=== PATIENT | male | born 1945 | race Hispanic/Latino ===

== ENCOUNTER → 2019-10-10 | Outpatient (CLI) | payer OTHER ==
[2019-10-10 13:25] VITALS: BP 157/86
== END | disposition home or self-care (01) ==
LOC: WHH 09:55
PROVIDERS: ATTEND Family Medicine
DX: L89.513 Pressure ulcer of right ankle, stage 3 (principal); G82.20 Paraplegia, unspecified; L40.50 Arthropathic psoriasis, unspecified; M06.9 Rheumatoid arthritis, unspecified; F43.10 Post-traumatic stress disorder, unspecified; Z93.3 Colostomy status
CPT/HCPCS: 11042; A4450; A6021; G0463; 99205

== ENCOUNTER → 2019-10-17 | Outpatient (CLI) | payer OTHER ==
[2019-10-17 13:19] VITALS: BP 173/76
== END | disposition home or self-care (01) ==
LOC: WHH 08:00
PROVIDERS: ATTEND Family Medicine
DX: L89.513 Pressure ulcer of right ankle, stage 3 (principal); G82.20 Paraplegia, unspecified; L40.50 Arthropathic psoriasis, unspecified; M06.9 Rheumatoid arthritis, unspecified; F43.10 Post-traumatic stress disorder, unspecified; Z93.3 Colostomy status
CPT/HCPCS: 11042; A6021

== ENCOUNTER → 2019-10-24 | Outpatient (CLI) | payer OTHER ==
[2019-10-24 10:15] VITALS: BP 141/70
== END | disposition home or self-care (01) ==
LOC: WHH 08:00
PROVIDERS: ATTEND Family Medicine
DX: L89.513 Pressure ulcer of right ankle, stage 3 (principal); G82.20 Paraplegia, unspecified; M06.9 Rheumatoid arthritis, unspecified; L40.50 Arthropathic psoriasis, unspecified; F43.10 Post-traumatic stress disorder, unspecified; Z93.3 Colostomy status
CPT/HCPCS: 11042; A6021

== ENCOUNTER → 2019-11-07 | Outpatient (CLI) | payer OTHER ==
[2019-11-07 11:08] VITALS: BP 138/73
== END | disposition home or self-care (01) ==
LOC: WHH 08:00
PROVIDERS: ATTEND Family Medicine
DX: L89.513 Pressure ulcer of right ankle, stage 3 (principal); G82.20 Paraplegia, unspecified; M06.9 Rheumatoid arthritis, unspecified; L40.50 Arthropathic psoriasis, unspecified; F43.10 Post-traumatic stress disorder, unspecified; Z93.3 Colostomy status
CPT/HCPCS: 11042; A6021; A6209; 97597

== ENCOUNTER → 2019-11-14 | Outpatient (CLI) | payer OTHER ==
[2019-11-14 12:30] VITALS: BP 137/86
== END | disposition home or self-care (01) ==
LOC: WHH 08:00
PROVIDERS: ATTEND Family Medicine
DX: L89.513 Pressure ulcer of right ankle, stage 3 (principal); I73.9 Peripheral vascular disease, unspecified; L40.50 Arthropathic psoriasis, unspecified; G82.20 Paraplegia, unspecified; M06.9 Rheumatoid arthritis, unspecified; F43.10 Post-traumatic stress disorder, unspecified; Z93.3 Colostomy status
CPT/HCPCS: 11042; A6021; A6209

== ENCOUNTER → 2019-11-21 | Outpatient (CLI) | payer OTHER ==
[2019-11-21 14:31] VITALS: BP 159/87
== END | disposition home or self-care (01) ==
LOC: WHH 08:30
PROVIDERS: ATTEND Family Medicine
DX: I70.233 Atherosclerosis of native arteries of right leg with ulceration of ankle (principal); L89.513 Pressure ulcer of right ankle, stage 3; L97.312 Non-pressure chronic ulcer of right ankle with fat layer exposed; G82.20 Paraplegia, unspecified; M06.9 Rheumatoid arthritis, unspecified; L40.50 Arthropathic psoriasis, unspecified; F43.10 Post-traumatic stress disorder, unspecified; Z93.3 Colostomy status
CPT/HCPCS: 11042; A6021; A6209

== ENCOUNTER → 2019-11-28 | Outpatient (CLI) | payer OTHER ==
[~2019-11-28] MED LIST: GEL DRESSING 90 GM GEL TP ONE
[2019-11-28 12:07] VITALS: BP 127/73
== END | disposition home or self-care (01) ==
LOC: WHH 08:00
PROVIDERS: ATTEND Family Medicine
DX: I70.233 Atherosclerosis of native arteries of right leg with ulceration of ankle (principal); L89.513 Pressure ulcer of right ankle, stage 3; L97.311 Non-pressure chronic ulcer of right ankle limited to breakdown of skin; L40.50 Arthropathic psoriasis, unspecified; G82.20 Paraplegia, unspecified; M06.9 Rheumatoid arthritis, unspecified; F43.10 Post-traumatic stress disorder, unspecified; Z93.3 Colostomy status
CPT/HCPCS: A6209; G0463

== ENCOUNTER 2019-12-05 08:00 | Outpatient (CLI) | payer OTHER ==
[2019-12-05 13:04] VITALS: BP 138/77
== END 2019-12-05 13:59 | disposition home or self-care (01) ==
LOC: WHH 08:00
PROVIDERS: ATTEND Family Medicine
DX: I70.233 Atherosclerosis of native arteries of right leg with ulceration of ankle (principal); L89.513 Pressure ulcer of right ankle, stage 3; L40.50 Arthropathic psoriasis, unspecified; G82.20 Paraplegia, unspecified; M06.9 Rheumatoid arthritis, unspecified; F43.10 Post-traumatic stress disorder, unspecified; Z93.3 Colostomy status
CPT/HCPCS: A6212; G0463